=== PATIENT | female | born 1985 | race Caucasian/White ===

== ENCOUNTER 2016-09-05 11:55 | Emergency (ER) | payer OTHER ==
[~2016-09-05] VITALS: Ht 157.5 cm; Wt 88.5 kg
[2016-09-05 11:55] VITALS: BP 120/81
[~2016-09-05 11:55] MED LIST: ACET50TA PO; ALBU17IN2 INH; AMOX500C PO; BENA25CA2 PO; FE T325T PO; IBUP80TA PO; NICO21DI5 TD; PERC5TAB6 PO; PRENTAB16 PO; TUSS100S3 PO; ZITH500T PO
[2016-09-05] MEDS ORDERED: MEDR15VL (12:06)
[2016-09-05] MEDS ORDERED: ALBUTEROL 90 MCG/ACT 8GM HFA INHALER INH ONE (12:45)
[2016-09-05] MEDS ORDERED: ZITHTAB PO (12:57)
[2016-09-05] MEDS ORDERED: ALBU17IN INH (12:57)
[2016-09-05] MEDS ORDERED: PRED20TA PO (12:57)
== END 2016-09-05 13:28 | disposition home or self-care (01) ==
LOC: M ED 13:25
DX: J44.0 Chronic obstructive pulmonary disease with (acute) lower respiratory infection (principal); J45.909 Unspecified asthma, uncomplicated; E28.2 Polycystic ovarian syndrome; F17.200 Nicotine dependence, unspecified, uncomplicated; Z90.49 Acquired absence of other specified parts of digestive tract; Z79.3 Long term (current) use of hormonal contraceptives; Z79.899 Other long term (current) drug therapy; Z88.1 Allergy status to other antibiotic agents; Z88.8 Allergy status to other drugs, medicaments and biological substances; Z82.5 Family history of asthma and other chronic lower respiratory diseases

== ENCOUNTER 2016-10-03 15:17 | Emergency (ER) | payer OTHER ==
[~2016-10-03] VITALS: Ht 157.5 cm; Wt 88.6 kg
[~2016-10-03 15:17] MED LIST changes: +ALBU17IN INH; +MEDR15VL; +PERC5TAB12 PO; -PERC5TAB6 PO; +PRED20TA PO; +ZITHTAB PO
[2016-10-03] MEDS ORDERED: MEDR1VL IM (15:25)
[2016-10-03] MEDS ORDERED: MORPHINE 4 MG/ML 1ML SYRINGE IV PRN (16:00)
[2016-10-03] MEDS ORDERED: NS 1,000 ML IV ONE (16:00)
[2016-10-03 16:56] LABS: BASO % 0.3 % (0.0-1.0); EOS # 0.1 K/mm3 (0.0-0.50); LARGE UNSTAINED CELL # 0.1 K/mm3 (0.0-0.4); LARGE UNSTAINED CELL % 0.9 % (0.0-4.0); LYMPH # 2.2 K/mm3 (1.5-6.5); LYMPH % 24.4 % (24.0-44.0); MEAN CORPUSCULAR HEMOGLOBIN 28.7 pg (27.0-33.0); MEAN CORPUSCULAR HGB CONC 34.4 g/dl (32.0-36.5); MEAN CORPUSCULAR VOLUME 83.6 fl (80.0-96.0); MONO # 0.4 K/mm3 (0.0-0.8); MONO % 4.1 % (0.0-5.0); NEUTROPHILS % 69.3 % (36.0-66.0); PLATELET COUNT, AUTOMATED 205 k/mm3 (150-450); RED CELL DISTRIBUTION WIDTH 13.6 % (11.5-14.5); WHITE BLOOD COUNT 8.6 K/mm3 (4.0-10.0)
[2016-10-03 17:09] LABS: ALBUMIN 3.8 GM/DL (3.2-5.2); ALKALINE PHOSPHATASE 119 U/L (45-117); ALT/SGPT 25 U/L (12-78); AMYLASE 43 U/L (25-115); ANION GAP 7 MEQ/L (8-16); AST/SGOT 17 U/L (15-37); BILIRUBIN,DIRECT < 0.1 MG/DL (0.0-0.2); BILIRUBIN,TOTAL 0.4 MG/DL (0.2-1.0); BLOOD UREA NITROGEN 11 MG/DL (7-18); CALCIUM LEVEL 8.6 MG/DL (8.5-10.1); CARBON DIOXIDE LEVEL 20 MEQ/L (21-32); CHLORIDE LEVEL 108 MEQ/L (98-107); CREATININE FOR GFR 0.67 MG/DL (0.55-1.02); GLOMERULAR FILTRATION RATE > 60.0 (>60); GLUCOSE, FASTING 75 MG/DL (70-105); POTASSIUM SERUM 4.1 MEQ/L (3.5-5.1); SODIUM LEVEL 135 MEQ/L (136-145); TOTAL PROTEIN 7.6 GM/DL (6.4-8.2)
--- NOTE | 2016-10-03 17:13 | REP ---
Pelvic sonography: History: Right-sided abdominal pain. History of polycystic ovary disease. Comparison study CT exam from 02/03/2016. Sonographic findings: Transabdominal and transvaginal scanning are performed. Visualized bladder greenberg are smooth. Uterine dimensions are normal at 7.3 x 4.2 x 7.1 cm. Endometrial echo 0.3 cm thick centrally placed. There is a fibroid posteriorly in the uterus measuring 1.2 x 1.0 x 0.9 cm. An anterior fibroid is seen measuring 0.8 cm in greatest diameter. No free fluid is seen. Normal ovaries are seen. The right ovary measures 2.5 x 1.7 x 1.2 cm. The right ovary Doppler flow is normal with resistive index 0.37. The left ovary is normal measuring 2.4 x 1.9 x 1.9 cm. Its Doppler flow is also normal with resistive index 0.46. Impression: Two small uterine fibroids. Otherwise normal pelvic sonogram. Signed by Luigi Watson MD 10/06/2016 10:47 A
[2016-10-03] MEDS ORDERED: METOCLOPRAMIDE INJ 10MG/2ML VIAL (J2765) IV ONE (17:30)
[2016-10-03] MEDS ORDERED: DICYCLOMINE INJ 20MG/2ML (J0500) IM ONE (17:30)
--- NOTE | 2016-10-03 18:08 | REP ---
Clinical: Right-sided abdominal pain. Technique: Upright view of the chest with supine and upright views of the abdomen and pelvis. Findings: Frontal upright view of the chest demonstrates no acute cardiopulmonary process or free air below the diaphragm to suspect pneumoperitoneum. Supine and upright views of the abdomen and pelvis demonstrate nonspecific bowel gas pattern without obstruction or perforation. No organomegaly. No abnormal calcifications. Skeletal structures normal for age. Impression: Nonspecific bowel gas pattern. Signed by Hoang Keen MD 10/03/2016 05:59 P
[2016-10-03] MEDS ORDERED: BENT10CA PO (18:35)
[2016-10-03 18:41] VITALS: BP 120/70
== END 2016-10-03 18:42 | disposition home or self-care (01) ==
LOC: M ED 15:17 → EDBD 15:17 → M ED 18:42
DX: R10.9 Unspecified abdominal pain (principal); R19.7 Diarrhea, unspecified; F17.210 Nicotine dependence, cigarettes, uncomplicated

== ENCOUNTER 2016-12-20 16:48 | Emergency (ER) | payer OTHER ==
[~2016-12-20] VITALS: Ht 157.5 cm; Wt 100.9 kg
[~2016-12-20 16:48] MED LIST changes: +BENT10CA PO; +MEDR1VL IM
[2016-12-20] MEDS ORDERED: NUVAMIS2 PV (16:57)
[2016-12-20] MEDS ORDERED: PERCOCET 5MG/325MG TAB PO ONE (17:30)
[2016-12-20] MEDS ORDERED: PERC5TAB12 PO (19:10)
[2016-12-20 19:18] VITALS: BP 134/95
--- NOTE | 2016-12-21 13:20 | REP ---
LEFT ANKLE: Four views of the left ankle performed. There is no acute fracture or dislocation. The ankle mortise is anatomic. There is inferior calcaneal spurring. IMPRESSION: No fracture or dislocation. Signed by Jong Gracia MD 12/21/2016 07:04 P
--- NOTE | 2016-12-21 13:20 | REP ---
LEFT FOOT, FOUR VIEWS: There is no evidence of an acute fracture, dislocation or intrinsic bone disease. There is inferior calcaneal spurring. IMPRESSION: No fracture or dislocation. Signed by Jong Gracia MD 12/21/2016 07:12 P
== END 2016-12-20 19:19 | disposition home or self-care (01) ==
LOC: M ED 16:48
DX: S93.402A Sprain of unspecified ligament of left ankle, initial encounter (principal); Z72.0 Tobacco use; W01.198A Fall on same level from slipping, tripping and stumbling with subsequent striking against other object, initial encounter; Y92.099 Unspecified place in other non-institutional residence as the place of occurrence of the external cause; Y93.01 Activity, walking, marching and hiking; Y99.9 Unspecified external cause status

== ENCOUNTER 2017-01-01 15:10 | Emergency (ER) | payer OTHER ==
[~2017-01-01] VITALS: Ht 157.5 cm; Wt 100.0 kg
[2017-01-01 15:10] VITALS: BP 143/87
[~2017-01-01 15:10] MED LIST changes: +NUVAMIS2 PV
[2017-01-01] MEDS ORDERED: AMOX500C PO (19:06)
[2017-01-01] MEDS ORDERED: IBUP80TA PO (19:06)
[2017-01-01] MEDS ORDERED: ERYT5OPO OS (19:06)
[2017-01-01] MEDS ORDERED: ERYTHROMYCIN OPHTH OINT OS ONE (19:15)
[2017-01-01] MEDS ORDERED: IBUPROFEN 800 MG TAB PO ONE (19:15)
[2017-01-01] MEDS ORDERED: AMOXICILLIN 500 MG CAP PO ONE (19:30)
== END 2017-01-01 19:26 | disposition home or self-care (01) ==
LOC: M ED 15:10
DX: H00.014 Hordeolum externum left upper eyelid (principal); J45.909 Unspecified asthma, uncomplicated; F33.9 Major depressive disorder, recurrent, unspecified; F17.210 Nicotine dependence, cigarettes, uncomplicated; Z79.3 Long term (current) use of hormonal contraceptives; Z88.1 Allergy status to other antibiotic agents; Z88.8 Allergy status to other drugs, medicaments and biological substances; Z91.030 Bee allergy status; Z97.5 Presence of (intrauterine) contraceptive device

== ENCOUNTER → 2017-05-31 | Outpatient (REF) | payer OTHER | LOC: M SFHCLERA 12:42 | DX: J02.9 Acute pharyngitis, unspecified (principal) ==

== ENCOUNTER 2017-09-30 22:29 | Emergency (ER) | payer SELFPAY ==
[2017-09-30] MEDS: IPRATROPIUM 0.5MG/ALBUTEROL 2.5MG INH SOL UD 3ML (DUONEB)(J7620) NEB (23:00)
[2017-09-30 23:11] LABS: BASO % 0.3 % (0.0-1.0); EOS # 0.1 10^3/uL (0.0-0.50); EOS % 0.4 % (0.0-3.0); HEMATOCRIT 34.3 % (36.0-47.0); HEMOGLOBIN 11.7 g/dl (12.0-15.5); IMMATURE GRANULOCYTE % 0.4 % (0-3.0); LYMPH # 1.7 10^3/uL (1.5-4.5); LYMPH % 15.5 % (24.0-44.0); MEAN CORPUSCULAR HEMOGLOBIN 28.1 pg (27.0-33.0); MEAN CORPUSCULAR HGB CONC 34.1 g/dl (32.0-36.5); MEAN CORPUSCULAR VOLUME 82.3 fl (80.0-96.0); MONO # 0.6 10^3/uL (0.0-0.8); MONO % 5.2 % (0.0-5.0); NEUTROPHILS # 8.8 10^3/uL (1.8-7.7); NEUTROPHILS % 78.2 % (36.0-66.0); PLATELET COUNT, AUTOMATED 189 10^3/uL (150-450); RED BLOOD COUNT 4.17 10^6/uL (4.00-5.40); RED CELL DISTRIBUTION WIDTH 13.5 % (11.5-14.5); WHITE BLOOD COUNT 11.3 10^3/uL (4.0-10.0)
[2017-09-30] MEDS: ACETAMINOPHEN TAB 650MG DOSE (2X325MG) PO (23:16)
[2017-09-30] MEDS: methylPREDNISolone INJ 125 MG/2 ML VIAL (J2930) IV (23:16)
[2017-09-30] MEDS: NS 1,000 ML IV (23:16)
[2017-09-30 23:18] LABS: CONTROL LINE HCG INT CTR LINE PRESENT; HCG, SERUM QUALITATIVE NEGATIVE (NEGATIVE)
[2017-09-30 23:25] LABS: ALBUMIN 3.2 GM/DL (3.2-5.2); ALBUMIN/GLOBULIN RATIO 0.76 (1.00-1.93); ALKALINE PHOSPHATASE 115 U/L (45-117); ALT/SGPT 26 U/L (12-78); ANION GAP 11 MEQ/L (8-16); AST/SGOT 12 U/L (7-37); BILIRUBIN,DIRECT 0.2 MG/DL (0.0-0.2); BILIRUBIN,TOTAL 0.5 MG/DL (0.2-1.0); BLOOD UREA NITROGEN 8 MG/DL (7-18); CARBON DIOXIDE LEVEL 22 MEQ/L (21-32); CHLORIDE LEVEL 104 MEQ/L (98-107); CREATININE FOR GFR 0.55 MG/DL (0.55-1.30); GLOMERULAR FILTRATION RATE > 60.0 (>60); GLUCOSE, FASTING 96 MG/DL (70-100); POTASSIUM SERUM 3.2 MEQ/L (3.5-5.1); SODIUM LEVEL 137 MEQ/L (136-145); TOTAL PROTEIN 7.4 GM/DL (6.4-8.2)
[2017-10-01] MEDS: POTASSIUM CHLORIDE 10 MEQ SR TABLET PO (00:09)
[2017-10-01 00:38] LABS: KETONE, URINE AUTO RFX 1+ mg/dL (NEGATIVE); LEUKOCYTE ESTERASE UR AUTO RFX NEGATIVE (NEGATIVE); MUCUS, URINE RFX SMALL (NEGATIVE); NITRITE, URINE AUTO RFX NEGATIVE (NEGATIVE); RBC, URINE AUTO RFX 4 /HPF (0-3); SPECIFIC GRAVITY UR AUTO RFX 1.011 (1.002-1.035); SQUAM EPITHELIAL CELL UR AURFX 4 /HPF (0-6); WBC, URINE AUTO RFX 3 /HPF (0-3)
[2017-10-01] MEDS: IPRATROPIUM 0.5MG/ALBUTEROL 2.5MG INH SOL UD 3ML (DUONEB)(J7620) NEB ×2 (01:20→04:03)
[2017-10-01] MEDS: AMOXICILLIN 500 MG CAP PO (03:51)
== END 2017-10-01 05:30 | disposition home or self-care (01) ==
LOC: M ED 10-01 05:30
DX: J02.0 Streptococcal pharyngitis (principal); J45.901 Unspecified asthma with (acute) exacerbation; E28.2 Polycystic ovarian syndrome; N80.9 Endometriosis, unspecified; Q05.9 Spina bifida, unspecified; Z72.0 Tobacco use; Z91.030 Bee allergy status; Z88.1 Allergy status to other antibiotic agents; Z88.8 Allergy status to other drugs, medicaments and biological substances
CPT/HCPCS: J2930

== ENCOUNTER 2018-02-05 10:33 | Emergency (ER) | payer SELFPAY ==
[2018-02-05 12:14] LABS: INFLUENZA A AMPLIFICATION NEGATIVE (NEGATIVE); INFLUENZA B AMPLIFICATION NEGATIVE (NEGATIVE)
== END 2018-02-05 13:06 | disposition home or self-care (01) ==
LOC: M ED 10:33
DX: J02.9 Acute pharyngitis, unspecified (principal); J45.909 Unspecified asthma, uncomplicated; F17.210 Nicotine dependence, cigarettes, uncomplicated; K21.9 Gastro-esophageal reflux disease without esophagitis; E28.2 Polycystic ovarian syndrome; F20.9 Schizophrenia, unspecified; F60.3 Borderline personality disorder; Z88.8 Allergy status to other drugs, medicaments and biological substances; Z88.1 Allergy status to other antibiotic agents; Z91.030 Bee allergy status
CPT/HCPCS: 87502

== ENCOUNTER 2018-03-02 09:38 | Emergency (ER) | payer MEDICAID, SELFPAY ==
[2018-03-02] MEDS: ONDANSETRON 4MG/2ML VIAL (J2405) IV ×2 (10:03)
[2018-03-02] MEDS: MORPHINE 4 MG/ML 1ML VIAL/SYRINGE (J2270) IV ×4 (10:03→10:46)
[2018-03-02] MEDS: NS 1,000 ML IV ×2 (10:06)
[2018-03-02 10:19] LABS: BASO % 0.2 % (0.0-1.0); EOS # 0.1 10^3/uL (0.0-0.50); EOS % 0.7 % (0.0-3.0); HEMATOCRIT 35.9 % (36.0-47.0); HEMOGLOBIN 11.8 g/dl (12.0-15.5); IMMATURE GRANULOCYTE % 0.4 % (0-3.0); LYMPH # 2.3 10^3/uL (1.5-4.5); LYMPH % 28.1 % (24.0-44.0); MEAN CORPUSCULAR HGB CONC 32.9 g/dl (32.0-36.5); MEAN CORPUSCULAR VOLUME 82.2 fl (80.0-96.0); MONO # 0.4 10^3/uL (0.0-0.8); MONO % 4.6 % (0.0-5.0); NEUTROPHILS # 5.5 10^3/uL (1.8-7.7); PLATELET COUNT, AUTOMATED 238 10^3/uL (150-450); RED BLOOD COUNT 4.37 10^6/uL (4.00-5.40); RED CELL DISTRIBUTION WIDTH 14.4 % (11.5-14.5); WHITE BLOOD COUNT 8.3 10^3/uL (4.0-10.0)
[2018-03-02 10:38] LABS: ALBUMIN 3.5 GM/DL (3.2-5.2); ALBUMIN/GLOBULIN RATIO 0.88 (1.00-1.93); ALKALINE PHOSPHATASE 120 U/L (45-117); ALT/SGPT 27 U/L (12-78); ANION GAP 9 MEQ/L (8-16); AST/SGOT 12 U/L (7-37); BILIRUBIN,TOTAL 0.3 MG/DL (0.2-1.0); BLOOD UREA NITROGEN 11 MG/DL (7-18); CALCIUM LEVEL 8.8 MG/DL (8.5-10.1); CARBON DIOXIDE LEVEL 24 MEQ/L (21-32); CHLORIDE LEVEL 106 MEQ/L (98-107); CREATININE FOR GFR 0.82 MG/DL (0.55-1.30); GLOMERULAR FILTRATION RATE > 60.0 (>60); GLUCOSE, FASTING 99 MG/DL (70-100); POTASSIUM SERUM 3.2 MEQ/L (3.5-5.1); SODIUM LEVEL 139 MEQ/L (136-145); TOTAL PROTEIN 7.5 GM/DL (6.4-8.2)
[2018-03-02] MEDS ORDERED: ISOVUE-370 76% 100ML VIAL (Q9967) As Ordered ×2 (10:42)
[2018-03-02 10:50] LABS: KETONE, URINE AUTO RFX NEGATIVE (NEGATIVE); LEUKOCYTE ESTERASE UR AUTO RFX 2+ (NEGATIVE); MUCUS, URINE RFX LARGE (NEGATIVE); NITRITE, URINE AUTO RFX POSITIVE (NEGATIVE); RBC, URINE AUTO RFX 13 /HPF (0-3); SPECIFIC GRAVITY UR AUTO RFX 1.016 (1.002-1.035); SQUAM EPITHELIAL CELL UR AURFX 15 /HPF (0-6); WBC, URINE AUTO RFX TNTC /HPF (0-3)
[2018-03-02] MEDS: KETOROLAC 30 MG/ML VIAL (J1885) IV ×2 (11:56)
[2018-03-02] MEDS: PHENAZOPYRIDINE 100 MG TAB PO ×2 (12:33)
[2018-03-02] MEDS: NITROFURANTOIN (MACROBID) 100 MG CAP PO ×2 (12:34)
== END 2018-03-02 12:48 | disposition home or self-care (01) ==
LOC: M ED 09:38
DX: N39.0 Urinary tract infection, site not specified (principal); Z72.0 Tobacco use; J45.909 Unspecified asthma, uncomplicated; K21.9 Gastro-esophageal reflux disease without esophagitis; Z87.442 Personal history of urinary calculi; Z87.440 Personal history of urinary (tract) infections; E28.2 Polycystic ovarian syndrome; N80.9 Endometriosis, unspecified; F41.9 Anxiety disorder, unspecified; F32.9 Major depressive disorder, single episode, unspecified; F20.9 Schizophrenia, unspecified; F60.3 Borderline personality disorder; N28.1 Cyst of kidney, acquired; Z79.899 Other long term (current) drug therapy; Z91.013 Allergy to seafood; Z88.1 Allergy status to other antibiotic agents; Z88.8 Allergy status to other drugs, medicaments and biological substances
CPT/HCPCS: J2270

== ENCOUNTER 2018-03-08 13:40 | Emergency (ER) | payer MEDICAID, SELFPAY | END 2018-03-08 15:12 | disposition home or self-care (01) | LOC: M ED 13:40 | DX: L02.412 Cutaneous abscess of left axilla (principal) | CPT/HCPCS: 99282 ==

== ENCOUNTER 2018-04-01 13:24 | Emergency (ER) | payer MEDICAID, OTHER ==
[~2018-04-01] VITALS: Ht 157.5 cm; Wt 84.1 kg
[~2018-04-01 13:24] MED LIST changes: -ACET50TA PO; +BACT800T5 PO; +CYCL10TA PO; +ERYT5OPO OS; +KETO10TAB PO; +MACR100C43 PO; +MAPA500T2 PO; +MEDR150I10; -MEDR15VL; -NICO21DI5 TD; +NICO21DI6 TD; +NORCOTAB PO; +PYRI1TAB5 PO; +REGL10TA6 PO; +TESS100C PO; -TUSS100S3 PO; +TUSS100S30 PO; +ZOFR4TAB14 PO
[2018-04-01] MEDS ORDERED: PERCOCET 5MG/325MG TAB PO ONE (14:30)
[2018-04-01 14:39] LABS: BASO % 0.2 % (0.0-1.0); EOS % 0.4 % (0.0-3.0); HEMATOCRIT 40.5 % (36.0-47.0); HEMOGLOBIN 13.2 g/dl (12.0-15.5); LYMPH # 3.4 10^3/uL (1.5-4.5); LYMPH % 37.3 % (24.0-44.0); MEAN CORPUSCULAR HEMOGLOBIN 26.7 pg (27.0-33.0); MEAN CORPUSCULAR HGB CONC 32.6 g/dl (32.0-36.5); MONO # 0.5 10^3/uL (0.0-0.8); NEUTROPHILS # 5.2 10^3/uL (1.8-7.7); PLATELET COUNT, AUTOMATED 243 10^3/uL (150-450); RED BLOOD COUNT 4.94 10^6/uL (4.00-5.40); WHITE BLOOD COUNT 9.1 10^3/uL (4.0-10.0)
[2018-04-01 14:51] LABS: INR 1.17
[2018-04-01 14:52] LABS: PARTIAL THROMBOPLASTIN TIME 32.4 SECONDS (25.4-37.6)
[2018-04-01] MEDS ORDERED: IBUP80TA PO (15:43)
--- NOTE | 2018-04-01 15:48 | REP ---
Pelvic sonography: History: Pelvic pain. Heavy vaginal bleeding. Findings: Transabdominal scanning is less than optimal because of lack of bladder filling. Transvaginal imaging demonstrates uterine dimensions measured at 8.5 x 4.6 x 6.4 cm. Endometrial echo is 0.4 cm thick. Trace of fluid is seen in the cul-de-sac. There are multiple fibroids noted including a 2.4 x 1.5 x 1.7 cm left posterior intramural fibroid, a 0.9 cm left anterior intramural fibroid, and a 1.3 cm left submucosal fibroid containing some calcifications. The endometrium is somewhat heterogeneous. Right ovary measures 5.4 x 3.1 x 3.7 cm. There is a paraovarian cyst 1.2 x 1.0 x 1.5 cm in greatest diameter. A 1.7 cm dominant follicle cyst is seen within the right ovary. Doppler flow is normal in the right ovary. Left ovary is unremarkable measuring 4.2 x 2.8 x 2.8 cm. Impression: Multiple uterine fibroids as above including an anterior submucosal fibroid on the left side. The largest fibroid measures 2.4 cm in greatest diameter. A trace of fluid is seen. There is a 1.5 cm paraovarian cyst in the right adnexa and a 1.7 cm follicle is seen in the right ovary. Normal left ovary. Electronically Signed by Luigi Watson MD 04/01/2018 03:39 P
[2018-04-01 15:54] VITALS: BP 124/65
--- NOTE | 2018-04-06 11:57 | ED PDOC ---
Post-Departure Follow-Up dr diane faxed formal report of pelvic us for fu Demian Riojas MD Apr 06, 2018 11:57
== END 2018-04-01 15:56 | disposition home or self-care (01) ==
LOC: M ED 13:24
DX: N94.6 Dysmenorrhea, unspecified (principal); N83.291 Other ovarian cyst, right side; D25.9 Leiomyoma of uterus, unspecified; E28.2 Polycystic ovarian syndrome; N80.9 Endometriosis, unspecified; Z72.0 Tobacco use; Z91.030 Bee allergy status; Z88.1 Allergy status to other antibiotic agents; Z88.8 Allergy status to other drugs, medicaments and biological substances

== ENCOUNTER 2018-05-13 16:55 | Emergency (ER) | payer OTHER ==
[~2018-05-13] VITALS: Ht 157.5 cm; Wt 86.9 kg
[2018-05-13 16:56] VITALS: BP 119/76
[2018-05-13] MEDS ORDERED: IBUP-1022 PO (17:38)
[2018-05-13] MEDS ORDERED: IBUPROFEN 600 MG TAB PO ONE (17:45)
--- NOTE | 2018-05-13 17:51 | REP ---
Left ankle four views : There is no fracture or dislocation. Mineralization and joint spaces are normal. There are no calcifications or foreign bodies. There is a small calcaneal plantar spur Impression: Negative left ankle . There is a small calcaneal plantar spur. Electronically Signed by Jong Jackson MD 05/13/2018 05:42 P
== END 2018-05-13 18:40 | disposition home or self-care (01) ==
LOC: M ED 16:55
DX: S93.402A Sprain of unspecified ligament of left ankle, initial encounter (principal); X50.9XXA Other and unspecified overexertion or strenuous movements or postures, initial encounter; Y92.89 Other specified places as the place of occurrence of the external cause; Y99.0 Civilian activity done for income or pay; Z88.1 Allergy status to other antibiotic agents; Z88.8 Allergy status to other drugs, medicaments and biological substances; Z91.030 Bee allergy status

== ENCOUNTER 2018-07-09 11:58 | Emergency (ER) | payer OTHER ==
[~2018-07-09] VITALS: Ht 157.5 cm; Wt 88.2 kg
[~2018-07-09 11:58] MED LIST changes: +ERYT1OIN26 OS; -ERYT5OPO OS; +HYDR-3715 PO; +IBUP-1022 PO; -NORCOTAB PO
[2018-07-09] MEDS: IBUPROFEN 800 MG TAB PO ONE (12:46)
--- NOTE | 2018-07-09 13:21 | REP ---
Left hip two views : There is no fracture or dislocation. Mineralization and joint spaces are normal. There are no calcifications or foreign bodies. Impression: Negative left hip AP pelvis two views : There is no fracture or dislocation. Mineralization and joint spaces are normal. There are no calcifications or foreign bodies. Impression: Negative AP pelvis . Electronically Signed by Jong Jackson MD 07/09/2018 01:12 P
[2018-07-09 13:33] VITALS: BP 122/78
== END 2018-07-09 13:35 | disposition home or self-care (01) ==
LOC: M ED 11:58
DX: S70.02XA Contusion of left hip, initial encounter (principal); W10.8XXA Fall (on) (from) other stairs and steps, initial encounter; Y92.241 Library as the place of occurrence of the external cause; J45.909 Unspecified asthma, uncomplicated; F33.9 Major depressive disorder, recurrent, unspecified; F41.9 Anxiety disorder, unspecified; F20.9 Schizophrenia, unspecified; K21.9 Gastro-esophageal reflux disease without esophagitis; E28.2 Polycystic ovarian syndrome; N80.9 Endometriosis, unspecified; Z88.1 Allergy status to other antibiotic agents; Z88.8 Allergy status to other drugs, medicaments and biological substances; Z91.030 Bee allergy status; F17.210 Nicotine dependence, cigarettes, uncomplicated

== ENCOUNTER 2018-07-18 16:28 | Emergency (ER) | payer OTHER ==
[~2018-07-18] VITALS: Ht 157.5 cm; Wt 89.1 kg
[2018-07-18] MEDS ORDERED: ONDANSETRON 4MG/2ML VIAL (J2405) IV ONE (17:00)
[2018-07-18] MEDS ORDERED: KETOROLAC 30 MG/ML VIAL (J1885) IV ONE (17:00)
[2018-07-18] MEDS ORDERED: NS 1,000 ML IV ONE (17:00)
[2018-07-18] MEDS: GASTROGRAFIN SOLUTION 30ML PO SCH ×2 (17:22→18:00)
[2018-07-18 17:30] LABS: BASO % 0.3 % (0.0-1.0); EOS # 0.1 10^3/uL (0.0-0.50); EOS % 0.5 % (0.0-3.0); HEMATOCRIT 38.8 % (36.0-47.0); HEMOGLOBIN 12.4 g/dl (12.0-15.5); LYMPH # 3.3 10^3/uL (1.5-4.5); LYMPH % 32.5 % (24.0-44.0); MEAN CORPUSCULAR HEMOGLOBIN 26.3 pg (27.0-33.0); MEAN CORPUSCULAR VOLUME 82.4 fl (80.0-96.0); MONO # 0.5 10^3/uL (0.0-0.8); MONO % 4.9 % (0.0-5.0); NEUTROPHILS # 6.2 10^3/uL (1.8-7.7); NEUTROPHILS % 61.4 % (36.0-66.0); PLATELET COUNT, AUTOMATED 254 10^3/uL (150-450); RED BLOOD COUNT 4.71 10^6/uL (4.00-5.40)
[2018-07-18 17:51] LABS: BLOOD UREA NITROGEN 18 MG/DL (7-18); CALCIUM LEVEL 8.8 MG/DL (8.5-10.1); CARBON DIOXIDE LEVEL 25 MEQ/L (21-32); CHLORIDE LEVEL 107 MEQ/L (98-107); CREATININE FOR GFR 0.68 MG/DL (0.55-1.30); GLOMERULAR FILTRATION RATE > 60.0 (>60); GLUCOSE, FASTING 64 MG/DL (70-100); POTASSIUM SERUM 3.7 MEQ/L (3.5-5.1); SODIUM LEVEL 140 MEQ/L (136-145)
[2018-07-18 17:52] LABS: ALBUMIN 3.9 GM/DL (3.2-5.2); ALT/SGPT 23 U/L (12-78); BILIRUBIN,DIRECT < 0.1 MG/DL (0.0-0.2); BILIRUBIN,TOTAL 0.2 MG/DL (0.2-1.0); LIPASE 170 U/L (73-393); TOTAL PROTEIN 7.6 GM/DL (6.4-8.2)
[2018-07-18] MEDS ORDERED: KETAMINE IV ONE (18:00)
[2018-07-18] MEDS ORDERED: NACL IV ONE (18:00)
[2018-07-18] MEDS ORDERED: DILUENT IV ONE (18:00)
[2018-07-18] MEDS ORDERED: ISOVUE-370 76% 100ML VIAL (Q9967) As Ordered ONE (18:40)
--- NOTE | 2018-07-18 19:44 | REPVR ---
EXAM: CT Abdomen and Pelvis With Contrast EXAM DATE/TIME: 07/18/2018 6:47 PM CLINICAL HISTORY: 32 years old, female; Abdominal pain; Generalized TECHNIQUE: Imaging protocol: Axial computed tomography images of the abdomen and pelvis with intravenous contrast. Coronal and sagittal reformatted images were created and reviewed. Radiation optimization: All CT scans at this facility use at least one of these dose optimization techniques: automated exposure control; mA and/or kV adjustment per patient size (includes targeted exams where dose is matched to clinical indication); or iterative reconstruction. Contrast material: ISOVUE 370; Contrast volume: 100 ml; Contrast route: IV; COMPARISON: CT ABD PELVIS W/O CONTRAST 02/03/2016 12:33 PM FINDINGS: ABDOMEN: Liver: There is a diffuse decrease in hepatic parenchymal density, consistent with fatty infiltration. Gallbladder and bile ducts: There has been a cholecystectomy. Pancreas: Normal. No ductal dilation. Spleen: Normal. No splenomegaly. Adrenals: Normal. No mass. Kidneys and ureters: Punctate nonobstructive calculus right kidney. Stomach and bowel: Normal. No obstruction. No mucosal thickening. Appendix: No evidence of appendicitis. PELVIS: Bladder: Unremarkable as visualized. Reproductive: Unremarkable as visualized. ABDOMEN and PELVIS: Intraperitoneal space: Normal. No free air. No significant fluid collection. Bones/joints: No acute fracture. No dislocation. Soft tissues: Unremarkable. Vasculature: Normal. No abdominal aortic aneurysm. Lymph nodes: Normal. No enlarged lymph nodes. IMPRESSION: 1. There is a diffuse decrease in hepatic parenchymal density, consistent with fatty infiltration. 2. There has been a cholecystectomy. 3. No acute findings. Electronically signed by: Levy Desir On 07/18/2018 19:44:07 PM
[2018-07-18] MEDS ORDERED: CARA1TAB6 PO (19:56)
[2018-07-18] MEDS ORDERED: ONDA4TAB6 PO (19:57)
[2018-07-18] MEDS ORDERED: DICYCLOMINE 10 MG CAP PO ONE (20:00)
[2018-07-18 20:18] VITALS: BP 118/70
== END 2018-07-18 20:20 | disposition home or self-care (01) ==
LOC: M ED 16:28
DX: K76.0 Fatty (change of) liver, not elsewhere classified (principal); E28.2 Polycystic ovarian syndrome; N80.9 Endometriosis, unspecified; Z91.030 Bee allergy status; Z88.1 Allergy status to other antibiotic agents; Z88.8 Allergy status to other drugs, medicaments and biological substances
CPT/HCPCS: 74177; 80048; 80076; 83605; 83690; 85025; 96374; 96375; 99284; J1885; J2405; Q9963; Q9967